=== PATIENT | female | born 1950 | race Caucasian/White ===

== ENCOUNTER 2017-01-25 05:41 | Day surgery (SDC) | payer MEDICARE, OTHER ==
[2017-01-25] MEDS ORDERED: FENTANYL PF 100MCG/2ML AMPUL ONE (07:55)
[2017-01-25] MEDS ORDERED: MIDAZOLAM HCL 2 MG/2ML VIAL ONE (07:55)
[2017-01-25] MEDS ORDERED: LIDOCAINE 1% INJ 50 ML MDV IJ ONE (08:02)
[2017-01-25] MEDS ORDERED: BUPIVACAINE MPF 0.5% W/EPI INJ 30 ML VIAL ONE (08:02)
== END 2017-01-25 10:05 | disposition home or self-care (01) ==
LOC: DS 05:41
PROVIDERS: ATTEND Surgery
DX: C50.911 Malignant neoplasm of unspecified site of right female breast (principal); I10 Essential (primary) hypertension; Z90.13 Acquired absence of bilateral breasts and nipples
CPT/HCPCS: 88300-TC; J0690; J2250; J2405; J2704; J3010; J3490